=== PATIENT | male | born 1985 | race Caucasian/White ===

== ENCOUNTER 2016-10-26 14:27 | Inpatient (IN) | payer OTHER ==
[~2016-10-26] VITALS: Ht 180.3 cm; Wt 74.1 kg
[2016-10-26 15:20] VITALS: BP 124/70; BP 124/78
[2016-10-26 15:30] VITALS: BP 124/70
[2016-10-26 15:49] LABS: BILIRUBIN NEGATIVE (NEGATIVE); BLOOD NEGATIVE (NEGATIVE); CLARITY CLEAR (CLEAR); COLOR YELLOW (YELLOW); GLUCOSE NEGATIVE (NEGATIVE); KETONE NEGATIVE (NEGATIVE); LEUKO ESTERASE NEGATIVE (NEGATIVE); NITRITE NEGATIVE (NEGATIVE); PH 5.5 (5.0-9.0); PROTEIN NEGATIVE (NEGATIVE); SPECIFIC GRAVITY 1.025 (1.005-1.030); UROBILINOGEN 0.2 E.U./dl (0.2-1.0)
[2016-10-26 15:54] LABS: BASO % 0.1 % (0.0-1.0); EOS # 0.1 10*3/uL (0.0-0.4); EOS % 1.5 % (1.0-4.0); HEMATOCRIT 45.3 % (42.0-52.0); LYMPH % 23.8 % (27.0-41.0); MEAN CELL VOLUME 82.4 fl (80.0-94.0); MEAN CORPUSCULAR HGB 27.3 pg (27.0-31.0); MEAN CORPUSCULAR HGB CONC 33.1 g/dl (33.0-37.0); MEAN PLATELET VOLUME 9.9 fl (9.6-12.3); MONO # 0.8 10*3/uL (0.1-1.0); MONO % 9.1 % (3.0-9.0); NEUT # 5.6 10*3/uL (2.3-7.9); NEUT % 65.3 % (47.0-73.0); PLATELET COUNT AUTOMATED 205 10*3/uL (130-400); RED CELL DISTRI WIDTH 13.2 % (0-14.5); WHITE BLOOD COUNT 8.5 10*3/uL (4.8-10.8)
[2016-10-26 16:03] LABS: BACTERIA TRACE; EPITHELIAL CELLS 0-2; HYALINE CAST 0-2; MUCOUS 1+
[2016-10-26 16:04] LABS: RBC 0-2 rbc/hpf (0-2); URINE REFLEX COMMENT NO (NO)
[2016-10-26 16:08] LABS: ALBUMIN 3.5 gm/dl (3.1-4.5); ALKALINE PHOSPHATASE 97 U/L (45-117); BILIRUBIN, TOTAL 0.3 mg/dl (0.2-1.0); BUN 10 mg/dl (7-24); CARBON DIOXIDE 31 mmol/L (21-32); CHLORIDE 102 mmol/L (98-107); EST GLOM FILT AFRICAN AMERICAN > 60 ml/min; GLUCOSE 79 mg/dL (65-99); POTASSIUM 3.8 mmol/L (3.5-5.1); SGOT/AST 51 IU/L (3-35); SGPT/ALT 68 U/L (12-78); SODIUM 138 mmol/L (136-145)
[2016-10-26 16:50] LABS: INTERNATIONAL NORM RATIO 0.9 (2.0-3.5)
[2016-10-26 16:57] LABS: URINE AMPHETAMINES < 1000 (1000ng/ml); URINE BARBITURATES < 200 (200ng/ml); URINE COCAINE < 300 (300ng/ml)
[2016-10-26 20:00] VITALS: BP 119/69
[2016-10-27] VITALS: BP 117/61
[2016-10-27 08:00] VITALS: BP 132/78
[2016-10-27 12:00] VITALS: BP 128/74
[2016-10-27 16:40] VITALS: BP 126/75
[2016-10-28] VITALS: BP 97/60
[2016-10-28 08:00] VITALS: BP 106/66
== END 2016-10-28 16:31 | disposition left against medical advice (07) | DRG 894 ==
LOC: 5E 14:27
PROVIDERS: Internal Medicine
DX: F11.23 Opioid dependence with withdrawal (principal); D72.810 Lymphocytopenia; R74.0 Nonspecific elevation of levels of transaminase and lactic acid dehydrogenase [LDH]; F17.210 Nicotine dependence, cigarettes, uncomplicated; G25.81 Restless legs syndrome; F41.9 Anxiety disorder, unspecified; Z53.21 Procedure and treatment not carried out due to patient leaving prior to being seen by health care provider; Z71.6 Tobacco abuse counseling